=== PATIENT | male | born 1945 | race Caucasian/White ===

== ENCOUNTER → 2017-12-09 | Day surgery (SDC) | payer MEDICARE ==
[2017-12-08 09:00] LABS: BASOPHILS % 0.3 % (0.0-1.0); EOSINOPHILS # (AUTO) 0.1 (0.0-0.4); EOSINOPHILS % 1.5 % (0.0-6.0); HEMATOCRIT 47.9 % (38.2-49.6); HEMOGLOBIN 15.8 g/dL (14.0-18.0); LYMPHOCYTES # (AUTO) 1.2 (1.0-3.2); LYMPHOCYTES % 18.7 % (18.0-39.1); MEAN CORPUSCULAR HEMOGLOBIN 29.5 pg (28-32); MEAN CORPUSCULAR VOLUME 89.5 fL (81-99); MONOCYTES # (AUTO) 0.5 (0.2-0.8); MONOCYTES % 7.2 % (4.4-11.3); NEUTROPHILS # (AUTO) 4.7 (2.1-6.9); NEUTROPHILS % 72.1 % (38.7-80.0); PLATELET COUNT 186 x10e3/uL (140-360); RED BLOOD COUNT 5.35 x10e6/uL (4.3-5.7); RED CELL DISTRIBUTION WIDTH 12.7 % (11.7-14.4)
--- NOTE | 2017-12-08 09:16 | Diagnostic Imaging Report ---
PROCEDURE: X-RAY CHEST, TWO VIEWS COMPARISON: None. INDICATIONS: PRE-OPERATIVE CHEST X-RAY FOR LEFT SHOULDER SURGERY FINDINGS: Lungs are well-inflated. No focal airspace consolidation, pleural effusion, or pneumothorax. Tortuous thoracic aorta with atherosclerotic calcification. Normal heart size. No pulmonary edema. No acute osseous abnormality. Probable metallic foreign body adjacent to the sternum. CONCLUSION: No acute cardiopulmonary abnormality. Dictated by: Herb Rodriguez M.D. on 12/08/2017 at 9:24 Electronically approved by: Herb Rodriguez M.D. on 12/08/2017 at 9:24
[~2017-12-09] MED LIST: CEFAZOLIN SOD 1 GM VIAL ONE; CITALOPRAM HBR40 MG PO; DEXAMETHASONE SOD PHOS INJ 4 MG/ML VIAL ONE; EPHEDRINE SULFATE INJ 50 MG/10 ML SYR ONE; FENTANYL CITRATE/PF 100MCG/2 ML INJ ONE; LABETALOL HCL 5 MG/ML 20ML VIAL ONE; LIDOCAINE HCL 2% LOCAL INJ 5 ML SDV VIAL INJ ONE; LOVASTATIN40 MG PO; MIDAZOLAM HCL 2 MG/2 ML VIAL ONE; MONTELUKAST SOD10 MG PO; ONDANSETRON HCL INJ 2 MG/ML VIAL ONE; PROPOFOL IV EMULSION 10 MG/ML 20 ML VIAL ONE; SEVOFLURANE INHAL SOLN 250 ML PEN BTL ONE; TEMAZEPAM30 MG PO; ZESTRIL20 MG PO
--- NOTE | 2017-12-09 11:50 | Operative Report ---
DATE OF PROCEDURE: December 09, 2017 MEDICAL AIDE: Abhijeet Lerner PA-C The patient was brought to the operating room for induction of anesthesia. Throughout this case, my PA's assistance was necessary for retraction of soft tissue and positioning of the extremity. This allows for efficient and technically successful execution of the operation and is considered medically necessary. PREOPERATIVE DIAGNOSIS: Rotator cuff tear, left shoulder. POSTOPERATIVE DIAGNOSIS: Rotator cuff tear, left shoulder. PROCEDURE: Left shoulder arthroscopy, subacromial decompression, rotator cuff repair. INDICATIONS: The patient is an active 72-year-old gentleman who has a traumatic tear of the left shoulder rotator cuff tendon. He has failed conservative management and would like to proceed with surgical repair. The risks and benefits have been explained. The lengthy recovery has been discussed. He states he understands and wishes to proceed. DESCRIPTION OF PROCEDURE: The patient was brought into the operating room and placed under general anesthetic. He received a regional block and prophylactic antibiotics in the holding area. He was positioned in the beach-chair position on the shoulder table. His left upper extremity was prepped and draped in a sterile manner. A preoperative time out was performed. A posterior arthroscopy portal was established. The shoulder was insufflated with sterile saline and systematically inspected. The glenohumeral surfaces were generally well preserved. 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 There was some degenerative fraying of the labrum. There was a large tear of the rotator cuff. A lateral working portal was established. The biceps anchor was probed at the supraglenoid tubercle. This was stable. The biceps tendon appeared pristine. The scope was placed into the subacromial space. A subacromial bursal and bone decompression was performed. The rotator cuff tendon was noted to be mobile. The greater tuberosity was decorticated. An [employer] SpeedBridge construct was used to repair the rotator cuff. Grain Combiner holes were placed at the articular margin. Bioabsorbable anchors preloaded with FiberTape stitches were seated. These were both passed through the rotator cuff using an [employer] Scorpion suture passer. An anterior shuttle portal was established. Secondary suture anchors were used to anchor the FiberTape stitches. The 2 stitches were conformed in an [id number] and [id number] construct. Excellent fixation was felt to be obtained. The tendon was probed and noted to be under appropriate tension and with excellent apposition to the cancellous bone. The arthroscopic instruments were removed. The portal incisions were closed with nylon stitches. A sterile bandage and an UltraSling were applied. Estimated blood loss was less than 10 mL. At the end of the procedure, all needle and sponge counts were correct. Job#: [id number]
[2017-12-09 12:00] VITALS: BP 98/64
== END | disposition home or self-care (01) ==
LOC: OR 07:21
PROVIDERS: ATTEND Specialist
DX: S46.022A Laceration of muscle(s) and tendon(s) of the rotator cuff of left shoulder, initial encounter (principal); M94.212 Chondromalacia, left shoulder; I10 Essential (primary) hypertension; E78.5 Hyperlipidemia, unspecified; W10.8XXA Fall (on) (from) other stairs and steps, initial encounter; Y92.009 Unspecified place in unspecified non-institutional (private) residence as the place of occurrence of the external cause; Z01.810 Encounter for preprocedural cardiovascular examination; Z01.818 Encounter for other preprocedural examination; Z96.653 Presence of artificial knee joint, bilateral
CPT/HCPCS: 29827; 36415; 71046; 85025; 93005; C1713; J0690; J1100; J2001; J2250; J2405; J3490